=== PATIENT | female | born 1940 | race Caucasian/White ===

== ENCOUNTER → 2018-01-14 | Outpatient (CLI) | payer BC | LOC: C.LABOAKS 18:06 | PROVIDERS: ATTEND Internal Medicine Critical Care Medicine | DX: R19.7 Diarrhea, unspecified (principal) ==

== ENCOUNTER → 2018-01-21 | Outpatient (CLI) | payer BC ==
[2018-01-21 13:01] LABS: BASO % 0.2 %; BASO ABS # 0.01 K/uL (0-0.2); EOS ABS # 0.09 K/uL (0-0.5); HEMATOCRIT 36.9 % (37-47); HEMOGLOBIN 12.2 g/dL (12.0-16.0); IG# 0.03 K/uL (0.00-0.02); LYMPH % 30.9 %; MEAN CELL VOLUME 83.5 fL (80-100); MEAN CORPUSCULAR HEMOGLOBIN 27.6 pg (25-34); MEAN CORPUSCULAR HGB CONC 33.1 g/dl (32-36); MEAN PLATELET VOLUME 10.7 fL (7.4-10.4); MONO ABS # 0.27 K/uL (0.11-0.59); NEUT % 60.2 %; NEUT ABS # 2.73 K/uL (1.4-6.5); PLATELET COUNT 204 K/uL (130-400); RED CELL DISTRIBUTION WIDTH CV 14.9 % (11.5-14.5); RED CELL DISTRIBUTION WIDTH SD 45.6 fL (36.4-46.3); WHITE BLOOD COUNT 4.53 K/uL (4.8-10.8)
[2018-01-21 14:11] LABS: ALBUMIN 3.2 gm/dl (3.4-5.0); ALT/SGPT 20 U/L (12-78); AST/SGOT 17 U/L (15-37); BLOOD UREA NITROGEN 18 mg/dl (7-18); CALCIUM 8.7 mg/dl (8.5-10.1); CARBON DIOXIDE 23 mmol/L (21-32); CREATININE 0.72 mg/dl (0.60-1.20); GLUCOSE 104 mg/dl (70-99); POTASSIUM 3.5 mmol/L (3.5-5.1); SODIUM 143 mmol/L (136-145)
[2018-01-21 14:22] LABS: ALKALINE PHOSPHATASE 89 U/L (45-117); TOTAL PROTEIN 6.7 gm/dl (6.4-8.2)
[2018-01-23 08:34] LABS: METHYLMALONIC ACID 311 NMOL/L (87-318)
== END | disposition home or self-care (01) ==
LOC: C.LABOAKS 11:58
PROVIDERS: ATTEND Internal Medicine Critical Care Medicine
DX: D64.9 Anemia, unspecified (principal); E03.9 Hypothyroidism, unspecified; G93.40 Encephalopathy, unspecified

== ENCOUNTER 2018-06-01 16:11 | Emergency (ER) | payer BC ==
[~2018-06-01] VITALS: Ht 157.5 cm; Wt 53.8 kg
[2018-06-01 16:15] VITALS: TEMP 36.7; Ht 157.5 cm; Wt 53.8 kg
[2018-06-01] MEDS ORDERED: ATEN50TA8 PO (16:56)
[2018-06-01] MEDS ORDERED: POLY335019 PO (16:56)
[2018-06-01] MEDS ORDERED: CALMOSEPTINE TOP (16:56)
[2018-06-01] MEDS ORDERED: CAL1CHW4 PO (16:56)
[2018-06-01] MEDS ORDERED: PANT40TA PO (16:56)
[2018-06-01] MEDS ORDERED: PSYL48.59 PO (16:56)
[2018-06-01] MEDS ORDERED: CZR25 PO (16:56)
[2018-06-01] MEDS ORDERED: ACET-1256 PO (16:56)
[2018-06-01] MEDS ORDERED: GLC5 PO (16:56)
[2018-06-01] MEDS ORDERED: RIVA1.5C6 PO (16:56)
[2018-06-01] MEDS ORDERED: APIX1TAB PO (16:56)
--- NOTE | 2018-06-01 17:12 | DIAGNOSTIC IMAGING REPORT ---
HEAD WITHOUT CONTRAST (CT) CLINICAL HISTORY: 78 years-old Female with fall, hit head. Acute head injury status post fall TECHNIQUE: Multiple axial CT images of the head were obtained without contrast. A dose lowering technique was utilized adhering to the principles of ALARA. CT DOSE: 601.98 mGy.cm COMPARISON: None. FINDINGS: No acute intracranial hemorrhage, midline shift, intracranial mass, hydrocephalus, territorial ischemia or abnormal extra-axial collection. Mild degree of ill-defined low-attenuation about the white matter suggest chronic microvascular ischemic changes. Cerebral vascular calcifications are noted. The calvarium is intact. Right mastoid air cells are clear. Moderate left mastoid effusion. Paranasal sinuses appear clear. IMPRESSION: 1. No acute intracranial abnormality. 2. Moderate sized left mastoid effusion. The above report was generated using voice recognition software. It may contain grammatical, syntax or spelling errors. Electronically signed by: Nathan Pulliam M.D. 06/01/2018 5:11 PM Dictated Date/Time: 06/01/2018 5:09 PM
--- NOTE | 2018-06-01 17:37 | DIAGNOSTIC IMAGING REPORT ---
NASAL BONES MIN 3 VIEWS HISTORY: 78 years-old Female nasal pain acute nasal pain status post fall COMPARISON: CT head of same day TECHNIQUE: 3 views of the nasal bones FINDINGS: Ill-defined transversely oriented lucency about the right nasal bone. No acute left nasal bone fracture or displaced fracture identified. Mild soft tissue swelling of the nasal bridge. Paranasal sinuses appear clear. Left mastoid effusion. IMPRESSION: 1. Ill-defined lucency of the right nasal bone is equivocal for subtle acute nondisplaced fracture. Correlate with point tenderness. 2. Left mastoid effusion. The above report was generated using voice recognition software. It may contain grammatical, syntax or spelling errors. Electronically signed by: Nathan Pulliam M.D. 06/01/2018 5:36 PM Dictated Date/Time: 06/01/2018 5:33 PM
--- NOTE | 2018-06-01 18:42 | DIAGNOSTIC IMAGING REPORT ---
L SHOULDER MIN 2 VIEWS ROUTINE HISTORY: 78 years-old Female left shoulder pain acute left-sided shoulder pain COMPARISON: None available TECHNIQUE: 3 views of the left shoulder FINDINGS: Moderate to severe glenohumeral with at least moderate AC joint osteoarthritis. Decreased coracohumeral interval with articulation of the acromium and humeral head. Mild marginal spurring of the acromium and greater tuberosity. No acute fracture or dislocation. Suspected chronic appearing fracture of the posterior left second rib. Calcification of the aorta. IMPRESSION: 1. No acute fracture or dislocation. 2. 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 The above report was generated using voice recognition software. It may contain grammatical, syntax or spelling errors. Electronically signed by: Nathan Pulliam M.D. 06/01/2018 6:41 PM Dictated Date/Time: 06/01/2018 6:39 PM
--- NOTE | 2018-06-01 18:44 | DIAGNOSTIC IMAGING REPORT ---
L ANKLE MIN 3 VIEWS ROUTINE HISTORY: 78 years-old Female left ankle pain acute left ankle pain COMPARISON: None available TECHNIQUE: 3 views of the left ankle FINDINGS: Mild circumferential soft tissue swelling about the ankle. The bones appear mildly demineralized. Mild marginal spurring of the ankle without acute fracture, dislocation or osteochondral defect. Corticated bone fragment is noted on the dorsal margin of the anterior process talus suggesting remote fracture fragment or fragmented osteophyte. Large enthesophytes about the calcaneus. Extensive peripheral arterial calcifications noted. IMPRESSION: Soft tissue swelling without fracture. The above report was generated using voice recognition software. It may contain grammatical, syntax or spelling errors. Electronically signed by: Nathan Pulliam M.D. 06/01/2018 6:42 PM Dictated Date/Time: 06/01/2018 6:41 PM
[2018-06-01 19:56] VITALS: BP 170/84; PULSE 63; O2SAT 94
--- NOTE | 2018-06-02 18:28 | EMERGENCY ROOM VISIT NOTE ---
History First contact with patient: 16:20 Chief Complaint: FALL Stated Complaint: FALL, HIT NOSE, SORE ANKLE History of Present Illness The patient is a 78 year old white female who presents to the Emergency Room with complaints of nasal pain, left ankle pain, and left upper arm pain, after a mechanical fall at the [place]. Patient states she tripped on a carpet and fell forward, landing on her face. She also landed on her left side. She believes the left ankle was hyper dorsiflexed. She has been ambulatory. She denies any loss of consciousness. 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 She denies any numbness or tingling. No chest pain or shortness of breath. No abdominal pain. She denies any dizziness before the fall. Her son and daughter -in-law accompany her today. She has had no vomiting. She denies any current headache. She has a large abrasion on her nose. Bleeding is controlled. Review of Systems REVIEW OF SYSTEM: HEENT: No dizziness, visual problems, hearing loss, or tinnitus. There is no difficulty swallowing and no oral lesions are present. PULMONARY: No cough, shortness of breath, sputum production or hemoptysis. History of PEs CARDIOVASCULAR: No chest pain, palpitations, shortness of breath or peripheral edema. GASTROINTESTINAL: No diarrhea, constipation, nausea, vomiting, or abdominal pain. GENITOURINARY: No dysuria, frequency, urgency or nocturia. NEUROLOGIC: No weakness, muscle tenderness, epilepsy or history of neurological problems. MUSCULOSKELETAL: No history of joint tenderness/swelling. Positive history of arthritis and arthralgias. SKIN: No rashes or lesions. PSYCHIATRIC: No history of depression or mental illness. ENDOCRINE: No history of thyroid disorders, or abnormal hair growth. Positive history of diabetes Past Medical/Surgical History Previous surgeries: None Medical history: Significant for history of DVT and PE, hypertension, type 2 diabetes, history of mastoiditis with encephalitis Family History Parents are . Noncontributory. Social History Smoking Status: Never Smoker Smokeless Tobacco Use: No Alcohol Use: none Drug Use: none Marital Status: Housing Status: assisted living Occupation Status: retired Current/Historical Medications Scheduled Apixaban (Eliquis), 2.5 MG PO BID Atenolol (Tenormin), 50 MG PO DAILY Glipizide (Glipizide), 5 MG PO DAILY Losartan Potassium (Losartan Potassium), 25 MG PO DAILY Pantoprazole (Protonix), 40 MG PO DAILY Rivastigmine Tartrate (Exelon), 1.5 MG PO BID Scheduled PRN Acetaminophen (Tylenol), 500 MG PO Q4 PRN for PAIN/TEMP [facility] Hydrox-Simeth (Rolaids Advanced 1000-200-40 mg), 1 TAB PO Q4 PRN for GERD Polyethylene Glycol 3350 (Miralax), 17 GM PO DAILY PRN for Constipation Psyllium (Metamucil), 1 TBS PO DAILY PRN for Constipation [Calmoseptine], 1 APPLN TOP BID PRN for IRRITATION Physical Exam Vital Signs Date Time Temp Pulse Resp B/P (MAP) Pulse Ox O2 Delivery O2 Flow Rate FiO2 06/01/18 19:56 63 170/84 94 Room Air 06/01/18 18:30 58 178/74 100 Room Air 06/01/18 16:15 36.7 60 16 201/92 98 Room Air Physical Exam General: Frail, elderly white female, in no acute distress. Sitting on the bed. Alert and oriented. Skin: Warm and dry with good turgor. No rashes. She has ecchymosis present over the lateral aspect of her left upper arm. It is approximately the size of a tangerine. She has ecchymosis and edema present at her nasal bridge. There is also a fairly large excoriation that is 1 cm in diameter. Bleeding is controlled. The patient is not diaphoretic. No additional abrasions. HEENT: Normocephalic. Eyes PERRLA, EOMI. No conjunctiva or scleral injection. Ears TMs intact bilaterally with good light reflexes. No erythema or bulging. No hemotympanum. Canals are patent. Nares patent bilaterally without turbinate enlargement. No significant drainage. No epistaxis. Oropharynx without erythema or exudate. Uvula midline, oral mucosa moist. No lesions present. Heart: Heart RRR. No MGR. Peripheral pulses are 2+. Lungs: Lungs are clear to auscultation. No crackles rhonchi or wheezing. Good air movement. The patient is able to take a deep breath. Abdomen: Abdomen was inspected, auscultated, and palpated. Bowel sounds present x 4. Soft, nontender to palpation. No hepato-splenomegaly. No masses noted. No rebound. No CVA tenderness. Musculoskeletal: She has no discomfort with palpation over her cervical spine or thoracic spine. Full range of motion of her neck. Limited range of motion of her left shoulder. Abduction of 80, forward flexion of 80, external rotation of around 20 with her elbow at the side. There is crepitus palpable with motion of her shoulder. She describes discomfort with palpation over the proximal humerus. Full elbow and wrist range of motion in both arms. Supple motion of both hips, knees, and the right ankle. Good motion of the left ankle as well, though this does cause some discomfort over the dorsum of the foot and anterior ankle. No pain with palpation over the medial or lateral malleoli. Strength is 5/5 for resisted plantarflexion and dorsiflexion of the left ankle. Neurologic: Gross sensation is intact across the upper and lower extremities by soft touch. Cranial nerves II through XII are intact. Medical Decision & Procedures ER Provider Diagnostic Interpretation: CT scan imaging of her head was read by radiology is negative for fracture or intracranial bleed. Radiographic imaging obtained of her nasal bones, left shoulder, and left ankle were also read by radiology and reviewed by me. She appears to have a nondisplaced nasal bone fracture. Left shoulder has significant arthritic change but no fracture. Left ankle films are unremarkable. Minor edema but no fracture. ED Course Patient and her family were educated regarding today's findings. Conservative care measures were discussed. CT scan imaging and radiographic imaging were obtained. She appears to have a nondisplaced nasal fracture. This should heal on its own. Avoid further trauma to the face. She has known DJD of the left shoulder along with rotator cuff pathology. She has no acute fracture. She may ice and elevate intermittently as needed for any minor discomfort. Tylenol every 6 hours as needed for breakthrough pain. She may benefit from some limited physical therapy. She may speak with her PCP about this. In regard to her left ankle, she was placed in a gel ankle splint for protection and support. She will use this as needed. Weight-bear as tolerated using her walker or cane. She was reassured that I do not suspect intracranial bleed or fracture, despite her anticoagulation use. Return to the ED for any worsening of symptoms. Cleanse her nasal abrasion daily with soap and water and reapply a small amount of bacitracin until fully resolved. First application was done today in the ED. There is nothing to suture. There is no flap to cover. Ice to any sore areas intermittently as needed 3 days, then use moist heat. She may be more sore tomorrow than today. Patient was seen in conjunction with Dr. Rossi, who also evaluated the patient and concurred with today's diagnosis and treatment plan. Medical Decision Possibility of intracranial bleed, cervical spine injury, facial fracture, skull fracture, arm fracture, and ankle fracture were considered among others. Possibility of dizziness or cardiac event prior to her fall was also considered. Medication Reconcilliation Current Medication List: was personally reviewed by me Blood Pressure Screening Blood pressure disposition: Elevated BP felt to be situational Impression Primary Impression: Nasal fracture Additional Impressions: Fall at home ankle sprain, left left arm contusion Departure Information Dispostion Home / Self-Care Condition GOOD Forms HOME CARE DOCUMENTATION FORM, Clean wound with;: soap and water Number of times/day to clean wound: 2 Coat wound with: antibiotic ointment TYLENOL USE, WOUND CARE INSTRUCTIONS, IMPORTANT VISIT INFORMATION Patient Instructions [facility] Additional Instructions Apply ice to any sore areas intermittently to 3 days, then use moist heat Gentle motion daily Cleanse the nose daily apply triple antibiotic ointment to the nasal abrasion 2 times per day Use the ankle splint for support and stability as needed Use your walker when ambulating Follow-up with your PCP for reevaluation if symptoms persist Return to the ED for any acute worsening of symptoms Tylenol every 6 hours as needed for discomfort Problem Qualifiers Primary Impression: Nasal fracture Encounter type: initial encounter Fracture type: closed Qualified Codes: S02.2XXA - Fracture of nasal bones, initial encounter for closed fracture Additional Impressions: Fall at home Encounter type: initial encounter Qualified Codes: W19.XXXA - Unspecified fall, initial encounter; Y92.009 - Unspecified place in unspecified non- institutional (private) residence as the place of occurrence of the external cause
--- NOTE | 2018-06-02 22:00 | EMERGENCY ROOM VISIT NOTE ---
ED Visit Note First contact with patient: 16:20 I have personally evaluated this patient examined her and reviewed the pertinent labs and data. I have discussed the case with the physician senior sales assistant and agree with the plan. Please refer to the PA note This patient comes in after suffering a mechanical fall. She did hit her head and face. CAT scan of her head shows no acute traumatic findings .she does likely have a nasal fracture is nondisplaced and she has no septal hematoma on my exam she is an abrasion to her nose. We also did get x-rays of left shoulder and ankle. She feels good and would like to go home. She denies that she had a syncopal episode or chest pain. She should rest and be careful getting up and down follow-up with her regular doctor.
== END 2018-06-01 19:58 | disposition home or self-care (01) ==
LOC: C.EDB 16:12 → C.EDC 19:58
DX: S02.2XXA Fracture of nasal bones, initial encounter for closed fracture (principal); S93.402A Sprain of unspecified ligament of left ankle, initial encounter; S40.022A Contusion of left upper arm, initial encounter; W18.09XA Striking against other object with subsequent fall, initial encounter; Y92.009 Unspecified place in unspecified non-institutional (private) residence as the place of occurrence of the external cause; I10 Essential (primary) hypertension; E11.9 Type 2 diabetes mellitus without complications; Z86.711 Personal history of pulmonary embolism; Z86.718 Personal history of other venous thrombosis and embolism; Z79.01 Long term (current) use of anticoagulants; Z79.84 Long term (current) use of oral hypoglycemic drugs; Z79.899 Other long term (current) drug therapy

== ENCOUNTER 2020-07-12 12:24 | Observation (INO) ==
[2020-07-12] MEDS ORDERED: SODIUM CHLORIDE 0.9% 1000ML 1,000 ML IV SCH (12:45)
--- NOTE | 2020-07-12 13:04 | XRay Report ---
XR chest 1V portable CLINICAL HISTORY: Weakness COMPARISON STUDY: 11/04/2018 FINDINGS: There is stable borderline elevation right hemidiaphragm. There is no failure. There is no focal pulmonary consolidation. There are no pleural effusions. There is a calcified right upper lung zone granuloma.[ IMPRESSION: No active disease in the chest. ACT 112: Negative or not required by law. Electronically signed by: Kanu Lennon M.D. 07/12/2020 1:02 PM
[2020-07-12 13:18] LABS: Basophils # (auto) 0.01 K/uL (0-0.2); Basophils % (auto) 0.1 %; Eosinophils # (auto) 0.23 K/uL (0-0.5); Eosinophils % (auto) 3.2 %; Hematocrit (blood only) 35.9 % (37-47); Hemoglobin 12.2 g/dL (12.0-16.0); Immature Granulocytes # (auto) 0.01 K/uL (0.00-0.02); Immature Granulocytes % (auto) 0.1 %; Lymphocytes # (auto) 1.25 K/uL (1.2-3.4); Lymphocytes % (auto) 17.3 %; Mean Corpuscular Hemoglobin 28.2 pg (25-34); Mean Corpuscular Volume 82.9 fL (80-100); Mean Platelet Volume 10.5 fL (7.4-10.4); Monocytes % (auto) 6.9 %; Neutrophils # (auto) 5.24 K/uL (1.4-6.5); Neutrophils % (auto) 72.4 %; Platelet Count 218 K/uL (130-400); RDW Coefficient of Variation 13.5 % (11.5-14.5); RDW Standard Deviation 41.1 fL (36.4-46.3); Red Blood Count 4.33 M/uL (4.2-5.4); White Blood Count 7.24 K/uL (4.8-10.8)
--- NOTE | 2020-07-12 13:20 | Emergency Department Note ---
Impression & Plan Altered mental status, Urinary tract infection, Acute kidney injury, Acute dehydration ED Provider Note NAME: LUCIA MARINO AGE: 80 SEX: F : 1940 ARRIVES VIA: Ambulance INFORMANT: Patient, the prehospital personnel and the patient's family member ED PROVIDER(S): Jarod Dozier DO CHIEF COMPLAINT: Altered mental status HPI: The patient is an 80-year-old female who presented to the emergency department for altered mental status. The patient has a last known well time of last evening prior to bed according to the prehospital personnel. The patient herself offers no complaints however reports from the long term state that the patient was having a left-sided facial droop as well as altered mental status. She has a history of urinary tract infection and is currently being treated with an antibiotic. There is been no nausea or vomiting. She is been complaining of no chest pain or difficulty breathing. She offers no other complaints at this time. The patient has a history of frequent falls. She also takes anticoagulation for atrial fibrillation. ROS: See above HPI for pertinent positives & negatives. A total of 10 systems reviewed and were otherwise negative. PAST MEDICAL HISTORY: See Below PAST SURGICAL HISTORY: See Below FAMILY HISTORY: See Below SOCIAL HISTORY: See Below HOME MEDICATIONS: See Below ALLERGIES: See Below VITALS: See Below PHYSICAL EXAMINATION: GENERAL: The patient is frail-appearing. She does not appear to be in pain. She follows directions intermittently but not consistently. EYES: The conjunctivae are clear. The pupils are round and reactive. EARS, NOSE, MOUTH AND THROAT: The nose is without any evidence of any deformity. Mucous members are dry. NECK: The neck is nontender and supple. RESPIRATORY: Normal respiratory effort is noted there is no evidence of wheezing rhonchi or rales CARDIOVASCULAR: Irregular rhythm was noted to auscultation. There is no definite murmur. GASTROINTESTINAL: The abdomen is soft. Abdomen is nontender. MUSCULOSKELETAL/EXTREMITIES: There is no evidence of gross deformity full range of motion is noted in the hips and shoulders. SKIN: There is no obvious evidence of any rash. There is no significant pedal edema. NEUROLOGIC: Patient is the patient is awake and follows commands. She does not answer questions appropriately so orientation cannot be assessed at this time. Strength was symmetric but diminished bilaterally. There was a possible left facial droop noted with forehead sparing. MEDICAL DECISION MAKING: The patient is an 80-year-old female who presented to the emergency department by ambulance for an evaluation of altered mental status. History was not able to be obtained from the patient herself however her son did present to the emerg ency department. The patient has been experiencing worsening dementia and agitation at the long term. Initially this was thought to be due to a urinary tract infection. The patient was started on Bactrim last week. Her symptoms did improve however today she started worsening with her symptoms and at this time her son states that she is not at her normal mental status. The patient had a work-up which included CT the head and CT angiography. No large vessel occlusion was noted. I discussed the patient's laboratory and radiographic studies with her and her son. I also discussed her case with the on-call [facility] group. They have agreed to evaluate the patient in the emergency department for further management and disposition. The patient was treated with IV fluids and IV antibiotics. Triage Nursing notes reviewed. Prior medical records reviewed Vital Signs: reviewed and remarkable for elevated blood pressure. Differential diagnosis: Infection, dehydration, metabolic abnormality, hypo/hyperglycemia, electrolyte disturbance, anemia, hypoxia, cardiac sources, intracerebral event, toxicologic, neurologic, as well as other pathologies. ER treatment provided: See below Diagnostics interpreted by me: ECG: EKG was obtained in the emergency department. My interpretation is atrial fibrillation at 108 bpm. There was no ectopy. There was no acute ST segment abnormalities noted. This was compared to a tracing from November 042018. No significant changes were noted. Cardiac Monitoring: An order was placed for continuous cardiac monitoring. The monitor shows a rate of 82 bpm with atrial fibrillation rhythm. Laboratory studies: As stated above and show below. Imaging studies: See below Consultation(s): 1600: I discussed this case with Dom Guillermo who is on-call for the [facility] group. She will evaluate the patient in the emergency department. 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 Diabetes mellitus, type II Endometriosis HTN (hypertension) Pulmonary emboli Surgical History History of cholecystectomy Family History Other No significant family history Social History Smoking Status: Never smoker Preferred Language: Burundian Feels Safe at Home: Yes Allergies Allergies Allergy/AdvReac Type Severity Reaction Status Date / Time atorvastatin [From Lipitor] Allergy Unknown Unknown Verified 07/12/20 13:21 metformin [From Glucophage] Allergy Unknown Unknown Verified 07/12/20 13:21 Penicillins Allergy Unknown Unknown Verified 07/12/20 13:21 Home Meds Home Medications Medication Instructions Recorded Confirmed amlodipine [Norvasc] 5 mg PO DAILY@89911/04/18 07/12/20 apixaban 2.5 mg PO BID 11/04/18 07/12/20 atenolol 50 mg PO DAILY@89911/04/18 07/12/20 ergocalciferol (vitamin D2) 50,000 unit PO FR@89911/04/18 07/12/20 [Vitamin D2] glipizide 5 mg PO DAILY@0911/04/18 07/12/20 losartan [Cozaar] 100 mg PO DAILY@0911/04/18 07/12/20 polyethylene glycol 3350 [Miralax] 17 g PO DAILY PRN 11/04/18 07/12/20 lorazepam 1 mg PO Q4H PRN 04/22/20 07/12/20 omeprazole 20 mg PO DAILY@0904/22/20 07/12/20 sulfamethoxazole-trimethoprim 1 tab PO BID17 04/22/20 07/12/20 [Bactrim DS] quetiapine 200 mg PO DAILY@1700 07/12/20 07/12/20 Results & Data (ED) Vital Signs Vital Signs - 24 hr 07/12/20 12:30 07/12/20 12:31 07/12/20 12:43 Temperature 36.6 C Temperature Source Oral Pulse Rate 67 64 62 Pulse Rate [Apical] Pulse Rate from SpO2 Sensor Respiratory Rate 16 17 14 Blood Pressure 120/53 L 120/53 L Blood Pressure [Left Arm] Blood Pressure Mean 75 84 Blood Pressure Mean [Left Arm] Pulse Oximetry 92 Oxygen Delivery Method Room Air Sepsis Recent Fever Within 48 Hours No Sepsis New/Unexplained Change in Mental Status N/A Sepsis Action Taken by Nursing No Action Required 07/12/20 12:50 07/12/20 13:00 07/12/20 13:10 Temperature Temperature Source Pulse Rate 62 61 64 Pulse Rate [Apical] Pulse Rate from SpO2 Sensor 61 Respiratory Rate 15 18 14 Blood Pressure Blood Pressure [Left Arm] Blood Pressure Mean Blood Pressure Mean [Left Arm] Pulse Oximetry 99 Oxygen Delivery Method Sepsis Recent Fever Within 48 Hours Sepsis New/Unexplained Change in Mental Status Sepsis Action Taken by Nursing 07/12/20 13:20 07/12/20 13:30 07/12/20 13:33 Temperature Temperature Source Pulse Rate 69 61 65 Pulse Rate [Apical] Pulse Rate from SpO2 Sensor Respiratory Rate 14 18 15 Blood Pressure Blood Pressure [Left Arm] Blood Pressure Mean Blood Pressure Mean [Left Arm] Pulse Oximetry Oxygen Delivery Method Sepsis Recent Fever Within 48 Hours Sepsis New/Unexplained Change in Mental Status Sepsis Action Taken by Nursing 07/12/20 13:35 07/12/20 13:40 07/12/20 14:02 Temperature Temperature Source Pulse Rate 63 70 Pulse Rate [Apical] 67 Pulse Rate from SpO2 Sensor 74 Respiratory Rate 20 17 14 Blood Pressure Blood Pressure [Left Arm] 98/46 L Blood Pressure Mean Blood Pressure Mean [Left Arm] 63 Pulse Oximetry 91 92 Oxygen Delivery Method Room Air Sepsis Recent Fever Within 48 Hours Sepsis New/Unexplained Change in Mental Status Sepsis Action Taken by Nursing 07/12/20 14:10 07/12/20 14:20 07/12/20 14:23 Temperature Temperature Source Pulse Rate 76 71 Pulse Rate [Apical] 71 Pulse Rate from SpO2 Sensor 73 Respiratory Rate 14 15 18 Blood Pressure Blood Pressure [Left Arm] Blood Pressure Mean Blood Pressure Mean [Left Arm] Pulse Oximetry 96 Oxygen Delivery Method Sepsis Recent Fever Within 48 Hours Sepsis New/Unexplained Change in Mental Status Sepsis Action Taken by Nursing 07/12/20 14:30 07/12/20 14:31 07/12/20 14:40 Temperature Temperature Source Pulse Rate 70 75 69 Pulse Rate [Apical] Pulse Rate from SpO2 Sensor Respiratory Rate 19 13 17 Blood Pressure 119/66 Blood Pressure [Left Arm] Blood Pressure Mean 79 Blood Pressure Mean [Left Arm] Pulse Oximetry Oxygen Delivery Method Sepsis Recent Fever Within 48 Hours Sepsis New/Unexplained Change in Mental Status Sepsis Action Taken by Nursing 07/12/20 14:50 07/12/20 15:00 07/12/20 15:01 Temperature Temperature Source Pulse Rate 75 72 71 Pulse Rate [Apical] Pulse Rate from SpO2 Sensor Respiratory Rate 17 16 19 Blood Pressure 115/80 Blood Pressure [Left Arm] Blood Pressure Mean 86 Blood Pressure Mean [Left Arm] Pulse Oximetry Oxygen Delivery Method Sepsis Recent Fever Within 48 Hours Sepsis New/Unexplained Change in Mental Status Sepsis Action Taken by Nursing 07/12/20 15:10 07/12/20 15:20 07/12/20 15:30 Temperature Temperature Source Pulse Rate 79 75 71 Pulse Rate [Apical] Pulse Rate from SpO2 Sensor Respiratory Rate 16 16 14 Blood Pressure Blood Pressure [Left Arm] Blood Pressure Mean Blood Pressure Mean [Left Arm] Pulse Oximetry Oxygen Delivery Method Sepsis Recent Fever Within 48 Hours Sepsis New/Unexplained Change in Mental Status Sepsis Action Taken by Nursing 07/12/20 15:31 07/12/20 15:40 07/12/20 15:50 Temperature Temperature Source Pulse Rate 71 71 71 Pulse Rate [Apical] Pulse Rate from SpO2 Sensor Respiratory Rate 16 21 15 Blood Pressure 125/66 Blood Pressure [Left Arm] Blood Pressure Mean 76 Blood Pressure Mean [Left Arm] Pulse Oximetry Oxygen Delivery Method Sepsis Recent Fever Within 48 Hours Sepsis New/Unexplained Change in Mental Status Sepsis Action Taken by Nursing 07/12/20 16:00 07/12/20 16:10 07/12/20 16:20 Temperature Temperature Source Pulse Rate 72 71 76 Pulse Rate [Apical] Pulse Rate from SpO2 Sensor Respiratory Rate 15 18 16 Blood Pressure 119/87 Blood Pressure [Left Arm] Blood Pressure Mean 103 Blood Pressure Mean [Left Arm] Pulse Oximetry 93 Oxygen Delivery Method Room Air Sepsis Recent Fever Within 48 Hours Sepsis New/Unexplained Change in Mental Status Sepsis Action Taken by Retirement Medications Current Medication List: was personally reviewed by me Laboratory Data Attestation: I reviewed the patient's lab results. Result diagrams: 07/12/20 13:00 07/12/20 13:00 Lab Results 07/12/20 07/12/20 07/12/20 Range/Units 13:00 13:00 13:00 WBC 7.24 (4.8-10.8) K/uL RBC 4.33 (4.2-5.4) M/uL Hgb 12.2 (12.0-16.0) g/dL POC Hgb (12.0-16.0) g/dl Hct 35.9 L (37-47) % POC Hct (37-47) % MCV 82.9 (80-100) fL MCH 28.2 (25-34) pg MCHC 34.0 (32-36) g/dL RDW Std Deviation 41.1 (36.4-46.3) fL RDW Coeff of Dwight 13.5 (11.5-14.5) % Plt Count 218 (130-400) K/uL MPV 10.5 H (7.4-10.4) fL Immature Gran % (Auto) 0.1 % Neut % (Auto) 72.4 % Lymph % (Auto) 17.3 % [place] % (Auto) 6.9 % Eos % (Auto) 3.2 % Baso % (Auto) 0.1 % Neut # (Auto) 5.24 (1.4-6.5) K/uL Lymph # (Auto) 1.25 (1.2-3.4) K/uL [place] # (Auto) 0.50 (0.11-0.59) K/uL Eos # (Auto) 0.23 (0-0.5) K/uL Baso # (Auto) 0.01 (0-0.2) K/uL Immature Gran # (Auto) 0.01 (0.00-0.02) K/uL PT 11.5 (9.0-12.0) Seconds INR 1.1 (0.9-1.1) APTT 31.7 H (21.0-31.0) Seconds PTT Ratio 1.1 POC Sodium (135-144) mmol/L Sodium 142 (136-145) mmol/L POC Potassium (3.3-5.0) mmol/L Potassium 4.5 (3.5-5.1) mmol/L POC Chloride (101-112) mmol/L Chloride 108 H (98-107) mmol/L Carbon Dioxide 29 (21-32) mmol/L POC Total CO2 (24-31) mmol/L Anion Gap 5.0 (3-11) POC Anion Gap (16-25) mmol/L POC BUN (7-18) mg/dl BUN 18 (7-18) mg/dl Creatinine 1.32 H (0.6-1.2) mg/dl POC Creatinine (0.6-1.3) mg/dl Est Cr Clr Drug Dosing 24.8 ml/min Est GFR ( Amer) 43.7 Est GFR (Non-Af Amer) 37.7 BUN/Creatinine Ratio 13.6 (10-20) Glucose 121 H (70-99) mg/dl POC Glucose (other) (70-99) mg/dl Calcium 9.0 (8.5-10.1) mg/dl POC Ioniz Calcium Adolfo (1.12-1.32) mmol/l Magnesium 1.9 (1.8-2.4) mg/dl Total Bilirubin 0.5 (0.2-1) mg/dl AST 31 (15-37) U/L ALT 27 (12-78) U/L Alkaline Phosphatase 106 (45-117) U/L Troponin I < 0.015 (0-0.045) ng/ml Total Protein 7.5 (6.4-8.2) gm/dl Albumin 3.2 L (3.4-5.0) gm/dl Globulin 4.3 H (2.5-4.0) gm/dl Albumin/Globulin Ratio 0.7 L (0.9-2) Urine Color Urine Appearance (Clear) Urine pH (4.5-7.5) Ur Specific Traver (1.000-1.030) Urine Protein (Negative) Urine Glucose (UA) (Negative) Urine Ketones (Negative) Urine Blood (Negative) Urine Nitrite (Negative) Urine Bilirubin (Negative) Urine Urobilinogen (Negative) Ur Leukocyte Esterase (Negative) Urine WBC (Auto) (0-5) /hpf Urine RBC (Auto) (0-4) /hpf U Hyaline Cast (Auto) (0-5) /lpf U Epithel Cells (Auto) (0-5) /lpf Urine Bacteria (Auto) (Negative) Ur Renal Epithelial Cell (0-5) /lpf Uric Acid Crystals (None Prsent) Granular Casts (0) /lpf Urine Mucus (None Prsent) COVID-19 Eval Order 07/12/20 07/12/20 07/12/20 Range/Units 13:09 13:25 16:18 WBC (4.8-10.8) K/uL RBC (4.2-5.4) M/uL Hgb (12.0-16.0) g/dL POC Hgb 12.6 (12.0-16.0) g/dl Hct (37-47) % POC Hct 37 (37-47) % MCV (80-100) fL MCH (25-34) pg MCHC (32-36) g/dL RDW Std Deviation (36.4-46.3) fL RDW Coeff of Dwight (11.5-14.5) % Plt Count (130-400) K/uL MPV (7.4-10.4) fL Immature Gran % (Auto) % Neut % (Auto) % Lymph % (Auto) % [place] % (Auto) % Eos % (Auto) % Baso % (Auto) % Neut # (Auto) (1.4-6.5) K/uL Lymph # (Auto) (1.2-3.4) K/uL [place] # (Auto) (0.11-0.59) K/uL Eos # (Auto) (0-0.5) K/uL Baso # (Auto) (0-0.2) K/uL Immature Gran # (Auto) (0.00-0.02) K/uL PT (9.0-12.0) Seconds INR (0.9-1.1) APTT (21.0-31.0) Seconds PTT Ratio POC Sodium 142 (135-144) mmol/L Sodium (136-145) mmol/L POC Potassium 4.5 (3.3-5.0) mmol/L Potassium (3.5-5.1) mmol/L POC Chloride 104 (101-112) mmol/L Chloride (98-107) mmol/L Carbon Dioxide (21-32) mmol/L POC Total CO2 27 (24-31) mmol/L Anion Gap (3-11) POC Anion Gap 17.0 (16-25) mmol/L POC BUN 18 (7-18) mg/dl BUN (7-18) mg/dl Creatinine (0.6-1.2) mg/dl POC Creatinine 1.2 (0.6-1.3) mg/dl Est Cr Clr Drug Dosing ml/min Est GFR ( Amer) Est GFR (Non-Af Amer) BUN/Creatinine Ratio (10-20) Glucose (70-99) mg/dl POC Glucose (other) 128 H (70-99) mg/dl Calcium (8.5-10.1) mg/dl POC Ioniz Calcium Adolfo 1.23 (1.12-1.32) mmol/l Magnesium (1.8-2.4) mg/dl Total Bilirubin (0.2-1) mg/dl AST (15-37) U/L ALT (12-78) U/L Alkaline Phosphatase (45-117) U/L Troponin I (0-0.045) ng/ml Total Protein (6.4-8.2) gm/dl Albumin (3.4-5.0) gm/dl Globulin (2.5-4.0) gm/dl Albumin/Globulin Ratio (0.9-2) Urine Color Yellow Urine Appearance Clear (Clear) Urine pH 5.0 (4.5-7.5) Ur Specific [place] 1.021 (1.000-1.030) Urine Protein Negative (Negative) Urine Glucose (UA) Negative (Negative) Urine Ketones Negative (Negative) Urine Blood Negative (Negative) Urine Nitrite Negative (Negative) Urine Bilirubin Negative (Negative) Urine Urobilinogen Negative (Negative) Ur Leukocyte Esterase 2+ H (Negative) Urine WBC (Auto) 5-10 H (0-5) /hpf Urine RBC (Auto) 0-4 (0-4) /hpf U Hyaline Cast (Auto) 10-30 H (0-5) /lpf U Epithel Cells (Auto) >30 H (0-5) /lpf Urine Bacteria (Auto) Negative (Negative) Ur Renal Epithelial Cell 0-5 (0-5) /lpf Uric Acid Crystals Present A (None Prsent) Granular Casts 1-5 H (0) /lpf Urine Mucus Present A (None Prsent) COVID-19 Eval Order [facility] Administered Medications Sodium Chloride (Nss 1000ml) 1,000 mls @ 50 mls/hr IV .Q20H HAIDER Stop: 08/11/20 12:44 Last Admin: 07/12/20 14:21 Dose: 50 mls/hr Documented by: [id number] Discontinued Medications Sodium Chloride (Nss) 500 mls @ 999 mls/hr IV .Q31M ONE Stop: 07/12/20 16:09 Last Infusion: 07/12/20 16:24 Dose: 0 mls/hr Documented by: [id number] Admin: 07/12/20 15:49 Dose: 999 mls/hr Documented by: [id number] Ceftriaxone Sodium (Rocephin) 1,000 mg in 50 mls @ 100 mls/hr IV NOW STA Stop: 07/12/20 16:08 Last Infusion: 07/12/20 16:24 Dose: 0 mls/hr Documented by: [id number] Admin: 07/12/20 15:49 Dose: 100 mls/hr Documented by: [id number] Ioversol (Optiray 320 125ml) 118 ml IV ONCE ONE Stop: 07/12/20 13:48 Last Admin: 07/12/20 13:48 Dose: 118 ml Documented by: [id number] Imaging Data Radiologist's Impression: Patient: LUCIA MARINO Date: 07/12/20 MR#: [id number]: [address] [facility] Acct ID:[id number]: ELM[place]FT Date: 1940[facility] Zip: [place] [address] Age: 80Location: ED Sex: FRoom/Bed: Att Phy:Diagnosis: lethargic/ams, elmcroft Luz Phy: ElmcroftService Date: 07/12/20 Fam Phy:Interpreting Phy: Kanu Lennon MD Admit Phy: Ordering Phy: Jarod Dozier DO cc: ~ XR chest 1V portable CLINICAL HISTORY: Weakness COMPARISON STUDY: 11/04/2018 FINDINGS: There is stable borderline elevation right hemidiaphragm. There is no failure. There is no focal pulmonary consolidation. There are no pleural effusions. There is a calcified right upper lung zone granuloma.[ IMPRESSION: No active disease in the chest. ACT 112: Negative or not required by law. Electronically signed by: Kanu Lennon M.D. 07/12/2020 1:02 PM Dictated: 07/12/20 1253 Transcribed: 07/12/20 1253 Patient: LUCIA MARINO Date: 07/12/20 MR#: [id number]: [address] [facility] Acct ID:[id number]: [place] Date: 1940[facility] Zip: [place] [address] Age: 80Location: ED Sex: FRoom/Bed: Att Phy:Diagnosis: lethargic/ams, elmcroft Luz Phy: ElroftService Date: 07/12/20 [facility] Phy:Interpreting Phy: Aureliano Orellana MD Admit Phy: Ordering Phy: Jarod Dozier DO cc: ~ UNENHANCED CT OF THE BRAIN; CT ANGIOGRAM OF THE BRAIN; CT ANGIOGRAM OF THE NECK CLINICAL HISTORY: Strokelike symptoms. COMPARISON STUDY: CT of the brain dated 04/22/2020. TECHNIQUE: Unenhanced axial CT scan of the brain is performed. Subsequently, following the IV administration of 118 of Optiray 320, CT angiogram of the head and neck was performed from the aortic arch to the vertex. Images are reviewed in the axial, sagittal, and coronal planes. 3-D MIPS images are created and assessed. IV contrast was administered without complication. All measurements were calculated based on NASCET criteria. A dose lowering technique was utilized adhering to the principles of ALARA. The unenhanced CT of the brain was performed twice due to motion artifact. CT DOSE: 2595.83 mGy.cm FINDINGS: Brain parenchyma: There is age-related involutional change noting moderate subco rtical and periventricular microangiopathic disease. There is no hemorrhage, mass effect, or evidence of acute territorial ischemia by CT criteria. There is no evidence of enhancing mass lesion on the angiogram phase images. The ventricles, sulci, and cisterns are prominent secondary to involutional change. Gusman-white matter differentiation is preserved. No extra-axial fluid collection is seen. Thoracic aorta: There is atherosclerotic calcification of the thoracic aorta. Visualized portions of the thoracic aorta are normal in caliber. The aortic arch demonstrates standard 3-vessel anatomy. Right carotid arterial system: The right common carotid artery is widely patent, as are the right internal and external carotid arteries. Calcified plaque is noted in the carotid bulb. Left carotid arterial system: The left common carotid artery is widely patent, as are the left internal and external carotid arteries. Vertebral arteries: The vertebral arteries are widely patent and codominant. Subclavian arteries: Widely patent bilaterally. Intracranial vasculature: There is atherosclerotic calcification of the cavernous carotid and vertebral arteries. There is origin of the left post erior cerebral artery. The internal carotid arteries are patent at the skull base, as are the anterior and middle cerebral arteries bilaterally. The vertebrobasilar system is widely patent. 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 The posterior cerebral arteries are otherwise patent. The vertebral arteries are codominant. There is no aneurysm or focal vessel cut off seen throughout the intracranial circulation. Jugular veins: Patent bilaterally. Dural sinuses: Patent. Lung apices: A calcified granuloma is seen in the right upper lobe. The imaged upper lobe lung parenchyma is otherwise clear. Soft tissues: The visualized pharyngeal soft tissues are normal in appearance noting angiographic phase technique. The oropharyngeal airway appears widely patent. The thyroid gland is enlarged and heterogeneous. There are numerous low-attenuation nodules which measure up to 1.3 cm. The salivary glands are normal in appearance. No cervical lymphadenopathy is seen. Skeletal structures: The skeletal structures are osteopenic. The calvarium appears intact. The cervical spine is maintained noting multilevel spondylosis. No lytic or blastic lesion is seen. Orbits: The bony orbits are intact. Orbital contents are normal as visualized. Sinuses and mastoids: There is trace mucosal thickening in the left maxillary antrum. A 1.7 cm retention cyst is seen in the right maxillary antrum. The remaining paranasal sinuses are clear. There is a large left mastoid effusion. The right mastoid air cells are well pneumatized. IMPRESSION: 1. There is no hemorrhage, mass effect, or evidence of acute territorial ischemia by CT criteria. 2. 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 3. Otherwise unremarkable CT angiogram of the brain. 4. Unremarkable CT angiogram of the neck. 5. Left mastoid effusion. 6. Additional findings as above. ACT 112: Negative or not required by law. Electronically signed by: Aureliano Orellana M.D. 07/12/2020 2:16 PM Dictated: 07/12/20 1403 Transcribed: 07/12/20 1415 Patient: LUCIA MARINO Date: 07/12/20 MR#: [id number]: [address] [facility] Acct ID:[id number]: [place] Date: 1940[facility] Zip: [place] [address] Age: 80Location: ED Sex: FRoom/Bed: Att Phy:Diagnosis: lethargic/ams, elmcroft Luz Phy: ElmcroftService Date: 07/12/20 Fam Phy:Interpreting Phy: Aureliano Orellana MD Admit Phy: Ordering Phy: Jarod Dozier, cc: ~ UNENHANCED CT OF THE BRAIN; CT ANGIOGRAM OF THE BRAIN; CT ANGIOGRAM OF THE NECK CLINICAL HISTORY: Strokelike symptoms. COMPARISON STUDY: CT of the brain dated 04/22/2020. TECHNIQUE: Unenhanced axial CT scan of the brain is performed. Subsequently, following the IV administration of 118 of Optiray 320, CT angiogram of the head and neck was performed from the aortic arch to the vertex. Images are reviewed in the axial, sagittal, and coronal planes. 3-D MIPS images are created and assessed. IV contrast was administered without complication. All measurements were calculated based on NASCET criteria. A dose lowering technique was utilized adhering to the principles of ALARA. The unenhanced CT of the brain was performed twice due to motion artifact. CT DOSE: 2595.83 mGy.cm FINDINGS: Brain parenchyma: There is age-related involutional change noting moderate subcortical and periventricular microangiopathic disease. There is no hemorrhage, mass effect, or evidence of acute territorial ischemia by CT criteria. There is no evidence of enhancing mass lesion on the angiogram phase images. The ventricles, sulci, and cisterns are prominent secondary to involutional change. Gusman-white matter differentiation is preserved. No extra- axial fluid collection is seen. Thoracic aorta: There is atherosclerotic calcification of the thoracic aorta. Visualized portions of the thoracic aorta are normal in caliber. The aortic arch demonstrates standard 3-vessel anatomy. Right carotid arterial system: The right common carotid artery is widely patent, as are the right internal and external carotid arteries. Calcified plaque is noted in the carotid bulb. Left carotid arterial system: The left common carotid artery is widely patent, as are the left internal and external carotid arteries. Vertebral arteries: The vertebral arteries are widely patent and codominant. Subclavian arteries: Widely patent bilaterally. Intracranial vasculature: There is atherosclerotic calcification of the cavernous carotid and vertebral arteries. There is origin of the left posterior cerebral artery. The internal carotid arteries are patent at the skull base, as are the anterior and middle cerebral arteries bilaterally. The vertebrobasilar system is widely patent. 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 The posterior cerebral arteries are otherwise patent. The vertebral arteries are codominant. There is no aneurysm or focal vessel cut off seen throughout the intracranial circulation. Jugular veins: Patent bilaterally. Dural sinuses: Patent. Lung apices: A calcified granuloma is seen in the right upper lobe. The imaged upper lobe lung parenchyma is otherwise clear. Soft tissues: The visualized pharyngeal soft tissues are normal in appearance noting angiographic phase technique. The oropharyngeal airway appears widely patent. The thyroid gland is enlarged and heterogeneous. There are numerous low-attenuation nodules which measure up to 1.3 cm. The salivary glands are normal in appearance. No cervical lymphadenopathy is seen. Skeletal structures: The skeletal structures are osteopenic. The calvarium ap pears intact. The cervical spine is maintained noting multilevel spondylosis. No lytic or blastic lesion is seen. Orbits: The bony orbits are intact. Orbital contents are normal as visualized. Sinuses and mastoids: There is trace mucosal thickening in the left maxillary antrum. A 1.7 cm retention cyst is seen in the right maxillary antrum. The remaining paranasal sinuses are clear. There is a large left mastoid effusion. The right mastoid air cells are well pneumatized. IMPRESSION: 1. There is no hemorrhage, mass effect, or evidence of acute territorial ischemia by CT criteria. 2. 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 3. Otherwise unremarkable CT angiogram of the brain. 4. Unremarkable CT angiogram of the neck. 5. Left mastoid effusion. 6. Additional findings as above. ACT 112: Negative or not required by law. Electronically signed by: Aureliano Orellana M.D. 07/12/2020 2:16 PM Dictated: 07/12/20 1403 Transcribed: 07/12/20 1415 Blood Pressure Blood Pressure Findings: Elevated blood pressure Blood Pressure Disposition: further management by hospitalist Discharge Plan Visit Data Chief Complaint: Illness Stated Complaint: lethargic/ams, [place] ED Provider: Jarod Dozier Discharge Problem: Altered mental status, Urinary tract infection, Acute kidney injury, Acute dehydration Patient Disposition: Being Evaluated by Hospitalist Condition: Good Discharge Instructions Interventions: ED Discharge Assessment Last Done: 07/12/20 17:08
[2020-07-12 13:27] LABS: iSTAT Creatinine 1.2 mg/dl (0.6-1.3); iSTAT Hemoglobin 12.6 g/dl (12.0-16.0); iSTAT Ionized Calcium 1.23 mmol/l (1.12-1.32); iSTAT Potassium 4.5 mmol/L (3.3-5.0)
[2020-07-12 13:34] LABS: INR 1.1 (0.9-1.1); Partial Thromboplastin Ratio 1.1; Partial Thromboplastin Time 31.7 Seconds (21.0-31.0); Prothrombin Time 11.5 Seconds (9.0-12.0)
[2020-07-12 13:38] LABS: Alanine Aminotransferase 27 U/L (12-78); Albumin Level 3.2 gm/dl (3.4-5.0); Aspartate Aminotransferase 31 U/L (15-37); BUN Creatinine Ratio 13.6 (10-20); Blood Urea Nitrogen 18 mg/dl (7-18); Carbon Dioxide 29 mmol/L (21-32); Chloride 108 mmol/L (98-107); Creatinine Clr Calc Pharmacy 24.8 ml/min; Est GFR (African American) 43.7; Est GFR (Non-African American) 37.7; Glucose 121 mg/dl (70-99); Magnesium 1.9 mg/dl (1.8-2.4); Potassium 4.5 mmol/L (3.5-5.1); Sodium 142 mmol/L (136-145)
[2020-07-12 13:42] LABS: Appearance Urine Clear (Clear); Bacteria Urine Automated Negative (Negative); Bilirubin Urine Negative (Negative); Blood Urine Negative (Negative); Color Urine Yellow; Epithelial Cell Urine Auto >30 /lpf (0-5); Glucose Urine UA Negative (Negative); Ketones Urine Negative (Negative); Leukocyte Esterase Urine 2+ (Negative); Nitrite Urine Negative (Negative); Protein Urine Negative (Negative); RBC Urine Automated 0-4 /hpf (0-4); Specific Gravity Urine 1.021 (1.000-1.030); Urobilinogen Urine Negative (Negative)
[2020-07-12 13:43] LABS: Albumin Globulin Ratio 0.7 (0.9-2); Alkaline Phosphatase 106 U/L (45-117); Bilirubin,Total 0.5 mg/dl (0.2-1); Globulin 4.3 gm/dl (2.5-4.0); Total Protein 7.5 gm/dl (6.4-8.2); Troponin I < 0.015 ng/ml (0-0.045)
[2020-07-12] MEDS ORDERED: OPTIRAY 320 125ml IV ONE (13:47)
[2020-07-12 14:00] LABS: Uric Acid Crystals Urine Present (None Prsent)
[2020-07-12 14:01] LABS: Mucus Urine Present (None Prsent); Renal Epithelial Cells Urine 0-5 /lpf (0-5)
--- NOTE | 2020-07-12 14:17 | CT Scan Report ---
UNENHANCED CT OF THE BRAIN; CT ANGIOGRAM OF THE BRAIN; CT ANGIOGRAM OF THE NECK CLINICAL HISTORY: Strokelike symptoms. COMPARISON STUDY: CT of the brain dated 04/22/2020. TECHNIQUE: Unenhanced axial CT scan of the brain is performed. Subsequently, following the IV adminis tration of 118 of [address] 320, CT angiogram of the head and neck was performed from the aortic arch t o the vertex. Images are reviewed in the axial, sagittal, and coronal planes. 3-D MIPS images are cre ated and assessed. IV contrast was administered without complication. All measurements were calculate d based on NASCET criteria. A dose lowering technique was utilized adhering to the principles of ALA RA. The unenhanced CT of the brain was performed twice due to motion artifact. CT DOSE: 2595.83 mGy.cm FINDINGS: Brain parenchyma: There is age-related involutional change noting moderate subcortical and periventri cular microangiopathic disease. There is no hemorrhage, mass effect, or evidence of acute territorial ischemia by CT criteria. There is no evidence of enhancing mass lesion on the angiogram phase images . The ventricles, sulci, and cisterns are prominent secondary to involutional change. Gusman-white frank er differentiation is preserved. No extra-axial fluid collection is seen. Thoracic aorta: There is atherosclerotic calcification of the thoracic aorta. Visualized portions of the thoracic aorta are normal in caliber. The aortic arch demonstrates standard 3-vessel anatomy. Right carotid arterial system: The right common carotid artery is widely patent, as are the right int ernal and external carotid arteries. Calcified plaque is noted in the carotid bulb. Left carotid arterial system: The left common carotid artery is widely patent, as are the left internal medicine physician assistant al and external carotid arteries. Vertebral arteries: The vertebral arteries are widely patent and codominant. Subclavian arteries: Widely patent bilaterally. Intracranial vasculature: There is atherosclerotic calcification of the cavernous carotid and vertebr al arteries. There is origin of the left posterior cerebral artery. The internal carotid arteri es are patent at the skull base, as are the anterior and middle cerebral arteries bilaterally. The ve rtebrobasilar system is widely patent. There is moderate stenosis of the proximal right posterior cer ebral artery seen on axial image #100. The posterior cerebral arteries are otherwise patent. The vert ebral arteries are codominant. There is no aneurysm or focal vessel cut off seen throughout the intra cranial circulation. Jugular veins: Patent bilaterally. Dural sinuses: Patent. Lung apices: A calcified granuloma is seen in the right upper lobe. The imaged upper lobe lung parenc hyma is otherwise clear. Soft tissues: The visualized pharyngeal soft tissues are normal in appearance noting angiographic pha se technique. The oropharyngeal airway appears widely patent. The thyroid gland is enlarged and heter ogeneous. There are numerous low-attenuation nodules which measure up to 1.3 cm. The salivary glands are normal in appearance. No cervical lymphadenopathy is seen. Skeletal structures: The skeletal structures are osteopenic. The calvarium appears intact. The cervic al spine is maintained noting multilevel spondylosis. No lytic or blastic lesion is seen. Orbits: The bony orbits are intact. Orbital contents are normal as visualized. Sinuses and mastoids: There is trace mucosal thickening in the left maxillary antrum. A 1.7 cm retent ion cyst is seen in the right maxillary antrum. The remaining paranasal sinuses are clear. There is a large left mastoid effusion. The right mastoid air cells are well pneumatized. IMPRESSION: 1. There is no hemorrhage, mass effect, or evidence of acute territorial ischemia by CT criteria. 2. 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 3. Otherwise unremarkable CT angiogram of the brain. 4. Unremarkable CT angiogram of the neck. 5. Left mastoid effusion. 6. Additional findings as above. ACT 112: Negative or not required by law. Electronically signed by: Aureliano Orellana M.D. 07/12/2020 2:16 PM
[2020-07-12] MEDS ORDERED: cefTRIAXone SODIUM 1,000 MG/50 ML BAG IV STA (15:39)
[2020-07-12] MEDS ORDERED: SODIUM CHLORIDE 0.9% 500 ML IV ONE (15:39)
--- NOTE | 2020-07-12 16:27 | History & Physical Report ---
Date of Service July 12, 2020 Assessment & Plan (1) Acute metabolic encephalopathy: (2) UTI (urinary tract infection): This is an 80-year-old female who resides at [facility] with PMH of hypertension, type 2 diabetes, dementia, history of PE on Eliquis and other medical problems listed below who presents with confusion x 8 days. -History obtained from son at bedside, who last saw patient well on 06/30 -Has completed 4 days of Bactrim for UTI but altered mental status has persisted and she has become more agitated -CT head, CTA head and neck, CXR without acute abnormality. Afebrile, creatinine elevated 1.32, UA abnormal -Continue Rocephin started in ED. Follow urine and blood cultures. Continue gentle fluids -Keep NPO for now with speech consult placed (3) FOREST (acute kidney injury): Creatinine elevated at 1.32 from baseline ~ 0.9 -In setting of Bactrim use, dehydration -Gentle fluids, discontinue Bactrim, hold losartan, monitor BMP (4) Dementia: History of vascular and ? Lewy body dementia, per son -Continue Seroquel, fall precautions, mouth care, repositioning (5) HTN (hypertension): Normotensive. Continue amlodipine. Hold losartan in setting of FOREST (6) Diabetes mellitus, type II: -Hold home agents -SSI while in-patient -BSG AC HS or Q6H while NPO (7) Pulmonary emboli: History of PE on Eliquis DVT Ppx: Eliquis Code status: DNR PCP: [facility] Dispo: Obs med tele. Discharge planning, PT and OT ordered. Patient seen in collaboration with Dr. Nguyen. Please see addendum. History of Present Illness Chief Complaint: Confusion Primary Care Provider: [facility] This is an 80-year-old female who resides at [facility] with PMH of hypertension, type 2 diabetes, dementia, history of PE on Eliquis and other medical problems listed below who presents with confusion x 8 days. History obtained from son at bedside, who last saw patient well on 06/30. At that time, patient was at her cognitive baseline which is pleasantly confused but able to converse and ambulate with assistance. As of 07/04, patient was not able to communicate clearly and required a wheelchair for transportation. Was diagnosed with UTI 4 days ago and started on Bactrim but altered mental status has persisted and she has become more agitated. Son has not been able to visit personal long term due to canceled visitation after known exposure in facility. Patient able to nod yes and no and denies any pain right now. Otherwise ROS is limited due to altered mental status. Allergies Allergy/AdvReac Type Severity Reaction Status Date / Time atorvastatin [From Lipitor] Allergy Unknown Unknown Verified 07/12/20 13:21 metformin [From Glucophage] Allergy Unknown Unknown Verified 07/12/20 13:21 Penicillins Allergy Unknown Unknown Verified 07/12/20 13:21 Home Medications Home Medications Medication Instructions Recorded Confirmed Type amlodipine [Norvasc] 5 mg PO DAILY@0900 11/04/18 07/12/20 History apixaban 2.5 mg PO BID 11/04/18 07/12/20 History atenolol 50 mg PO DAILY@0900 11/04/18 07/12/20 History ergocalciferol (vitamin D2) 50,000 unit PO FR@0911/04/18 07/12/20 History [Vitamin D2] glipizide 5 mg PO DAILY@0900 11/04/18 07/12/20 History losartan [Cozaar] 100 mg PO DAILY@0900 11/04/18 07/12/20 History polyethylene glycol 3350 [Miralax] 17 g PO DAILY PRN 11/04/18 07/12/20 History lorazepam 1 mg PO Q4H PRN 04/22/20 07/12/20 History omeprazole 20 mg PO DAILY@0900 04/22/20 07/12/20 History sulfamethoxazole-trimethoprim 1 tab PO BID17 04/22/20 07/12/20 History [Bactrim DS] quetiapine 200 mg PO DAILY@1700 07/12/20 07/12/20 History 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 Diabetes mellitus, type II Endometriosis HTN (hypertension) Pulmonary emboli Surgical History History of cholecystectomy Family History Other No significant family history Social History Smoking Status: Never smoker Preferred Language: Khmer Feels Safe at Home: Yes Review of Systems Review of Systems: Unobtainable due to cognitive status Physical Exam Physical Exam: General Appearance: WD/WN, vitals as above, NAD, conversing intermittently, agitated but easily redirected Head: normocephalic, atraumatic Eyes: normal inspection, PERRL, conjunctivae normal, anicteric sclerae ENT: external ear and nose normal, + dry oropharynx Neck: normal visual inspection, trachea midline, no thyromegaly Respiratory: normal respiratory effort, lungs clear to auscultation, no wheeze, rales, rhonchi. No accessory muscle use Cardiovascular: regular rate, rhythm, no murmur appreciated, normal peripheral pulses, no BLE edema. Vessels: no JVD Chest: normal inspection of chest Abdomen/GI: normal bowel sounds, soft, nontender, no hepatosplenomegaly Extremities/Musculoskeletal: no cyanosis or clubbing, extremities motor strength 5/5 Neurologic: PERRL, EOMI, accommodation nl, no face palsy, no dysarthria, CN's II-XI intact bilaterally and moves all extremities Psychiatric: Disoriented, intermittently agitated but easily redirected Skin: no rashes, normal color, warm/dry Results & Data Results & Data ([facility]) Vital Signs (Past 12 Hours) Vital Signs Temp Pulse Pulse Resp BP BP Pulse Ox 07/12/20 14:23 71 18 07/12/20 13:35 67 20 98/46 L 91 07/12/20 12:30 36.6 C 67 16 120/53 L 92 Laboratory Results Short CBC 07/12/20 Range/Units 13:00 WBC 7.24 (4.8-10.8) K/uL Hgb 12.2 (12.0-16.0) g/dL Hct 35.9 L (37-47) % Plt Count 218 (130-400) K/uL BMP 07/12/20 13:00 Sodium 142 Potassium 4.5 Chloride 108 H Carbon Dioxide 29 BUN 18 Creatinine 1.32 H Glucose 121 H Calcium 9.0 Cardiac Enzymes 07/12/20 Range/Units 13:00 Troponin I < 0.015 (0-0.045) ng/ml Liver Function 07/12/20 Range/Units 13:00 Total Bilirubin 0.5 (0.2-1) mg/dl AST 31 (15-37) U/L ALT 27 (12-78) U/L Alkaline Phosphatase 106 (45-117) U/L Albumin 3.2 L (3.4-5.0) gm/dl Urine 07/12/20 Range/Units 13:25 Urine Color Yellow Urine Appearance Clear (Clear) Urine pH 5.0 (4.5-7.5) Ur Specific [place] 1.021 (1.000-1.030) Urine Protein Negative (Negative) Urine Glucose (UA) Negative (Negative) Diagnostic Findings Head CT: IMPRESSION: 1. There is no hemorrhage, mass effect, or evidence of acute territorial ischemia by CT criteria. 2. 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 3. Otherwise unremarkable CT angiogram of the brain. 4. Unremarkable CT angiogram of the neck. 5. Left mastoid effusion. 6. Additional findings as above. Head CTA: IMPRESSION: 1. There is no hemorrhage, mass effect, or evidence of acute territorial ischemia by CT criteria. 2. 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 3. Otherwise unremarkable CT angiogram of the brain. 4. Unremarkable CT angiogram of the neck. 5. Left mastoid effusion. 6. Additional findings as above. Neck CTA: IMPRESSION: 1. There is no hemorrhage, mass effect, or evidence of acute territorial ischemia by CT criteria. 2. 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 3. Otherwise unremarkable CT angiogram of the brain. 4. Unremarkable CT angiogram of the neck. 5. Left mastoid effusion. 6. Additional findings as above. CXR: IMPRESSION: No active disease in the chest. Code Status & VTE Plan VTE Prophylaxis Plan VTE Prophylaxis will be ordered: Yes Supervising Physician Co-Signing Physician Notes I, Dr. Hermes Nguyen, have seen and examined the patient Aurea Monroe with physician residential living assistant and would like to comment that on exam General: does not appear to be in acute distress, has dementia, speaking, history as per son at bedside HEENT: extraoccular movements, dry oral mucosa Lungs: on room air, no wheezing Heart: regular rate Abdomen: soft, nontender, positive bowel sounds Extremities/Neuro: moves all extremities Assessment and Plan -[facility] who as per son at bedside has not been her usual state of health in 06/30/2020 when patient at that time was ambulating. On 07/04/2020, her son reports that patient had functional decline and needed to be pushed by wheelchair. Subsequently, the [facility] facility tested their residents for COVID-19. To his knowledge, patients son denies any recent positive COVID-19 test for the patient. -patient does not appear to be in acute distress as she became more interactive after IV fluids given by ED physician, her dry oral mucosa, and elevations in creatinine suggestive that symptoms are primarily from dehydration. Urinary tract infection is a possibility -despite no obvious respiratory symptoms, patient will still be screened for COVID-19 because of recent long-term COVID outbreaks in the local area. -patient has history of type 2 diabetes mellitus. Patient will get further IV fluids as D5 normal saline until dysphagia screening and formal speech and swallow evaluation. Will need PT/OT evaluation and case management evaluation. Give sliding scale insulin as needed -patients son affirms Code Status to be DNR/DNI -agree with other assessments and plans as documented by physician residential living assistant -My colleague Dr. Romano will be following the patient as hospitalist starting on 07/13/2020
--- NOTE | 2020-07-12 17:33 | Electrocardiogram Report ---
Test Reason : Blood Pressure : / mmHG Vent. Rate : 108 BPM Atrial Rate : 394 BPM P-R Int : 000 ms QRS Dur : 038 ms QT Int : 386 ms P-R-T Axes : 000 -39 032 degrees QTc Int : 517 ms Poor data quality, interpretation may be adversely affected Not readily interpretable Probably sinus rhythm Confirmed by Naman Schwartz ([id number]) on 07/12/2020 5:32:38 PM [facility] Confirmed By:Elbert Schwartz
[2020-07-12] MEDS ORDERED: POLYETHYLENE (MIRALAX) 17 GM PACK PO PRN (17:45)
[2020-07-12] MEDS ORDERED: ONDANSETRON INJ 2 MG/ML 2 ML VIAL IV PRN (17:45)
[2020-07-12] MEDS ORDERED: ACETAMINOPHEN 325 MG TAB PO PRN (17:45)
[2020-07-12] MEDS ORDERED: DEXTROSE 50% 50 ML SYRINGE IV PRN (18:15)
[2020-07-12] MEDS ORDERED: CARBOHYDRATES FOR HYPOGLYCEMIA PO PRN (18:15)
[2020-07-12] MEDS ORDERED: GLUCOSE 10 TABS/TUBE PO PRN (18:15)
[2020-07-12] MEDS ORDERED: GLUCOSE 40% GEL 15 GM TUBE PO PRN (18:15)
[2020-07-12] MEDS ORDERED: GLUCAGON FOR INJ 1 MG VIAL SQ PRN (18:15)
[2020-07-12] MEDS ORDERED: D5W AND 1/2NSS 1,000 ML IV SCH (18:15)
[2020-07-12] MEDS ORDERED: LORazepam 1 MG TAB PO PRN (18:19)
[2020-07-12] MEDS: APIXABAN 2.5 MG TAB PO SCH ×2 (20:32→20:53)
[2020-07-12] MEDS: QUETIAPINE FUMARATE 200 MG TABCR PO SCH ×2 (20:32→20:54)
[2020-07-12] MEDS: INSULIN ASPART 100 UNITS/ML 3 ML PEN SC SCH (20:55)
[2020-07-12] MEDS ORDERED: HEPARIN SOD 5,000 UNIT/0.5 ML VIAL SQ SCH (21:00)
[2020-07-13 07:18] LABS: Hematocrit (blood only) 34.6 % (37-47); Hemoglobin 11.4 g/dL (12.0-16.0); Mean Corpuscular Hemoglobin 27.3 pg (25-34); Mean Corpuscular Hgb Conc 32.9 g/dL (32-36); Mean Corpuscular Volume 82.8 fL (80-100); Mean Platelet Volume 10.7 fL (7.4-10.4); Platelet Count 226 K/uL (130-400); RDW Coefficient of Variation 13.6 % (11.5-14.5); Red Blood Count 4.18 M/uL (4.2-5.4)
[2020-07-13 07:43] LABS: Estimated Average Glucose 103 mg/dl; Hemoglobin A1C 5.2 % (4.5-5.6)
[2020-07-13 07:54] LABS: Albumin Level 2.9 gm/dl (3.4-5.0); BUN Creatinine Ratio 11.7 (10-20); Calcium 8.6 mg/dl (8.5-10.1); Creatinine Clr Calc Pharmacy 28.8 ml/min; Est GFR (African American) 52.2; Est GFR (Non-African American) 45.1
[2020-07-13 07:57] LABS: Albumin Globulin Ratio 0.8 (0.9-2); Bilirubin,Total 0.6 mg/dl (0.2-1); Globulin 3.6 gm/dl (2.5-4.0); Total Protein 6.5 gm/dl (6.4-8.2)
[2020-07-13] MEDS: APIXABAN 2.5 MG TAB PO SCH ×2 (09:25→20:43)
[2020-07-13] MEDS: cefTRIAXone SODIUM 1,000 MG in DEXTROSE 5% 50 ML IV SCH (09:25)
[2020-07-13] MEDS: AMLODIPINE BESYLATE 5 MG TAB PO SCH (09:25)
[2020-07-13] MEDS: PANTOprazole 40 MG TAB PO SCH (09:25)
[2020-07-13] MEDS: ATENOLOL 50 MG TABLET PO SCH (09:25)
[2020-07-13] MEDS: INSULIN ASPART 100 UNITS/ML 3 ML PEN SC SCH ×4 (09:30→21:30)
[2020-07-13] MEDS: QUETIAPINE FUMARATE 200 MG TABCR PO SCH (16:51)
--- NOTE | 2020-07-13 20:13 | Hospitalist Progress Note ---
Date of Service July 13, 2020 Assessment & Plan (1) Acute metabolic encephalopathy: (2) UTI (urinary tract infection): This is an 80-year-old female who resides at [facility] with PMH of hypertension, type 2 diabetes, dementia, history of PE on Eliquis and other medical problems listed below who presents with confusion x 8 days. Received 4 days of bactrim for UTI CT head/CTA head and neck showed no acute intracranial abnormality. Urine cx and blood cx pending Continue Rocephin IV for now Clinically improves fall precaution (3) FOREST (acute kidney injury): Creatinine elevated at 1.32 on admission from baseline ~ 0.9 Possible related to dehydration in the setting of bactrim Received IVF Creatinine improved to 1.1 today Bactrim was d/c Continue to hold Losartan (4) Dementia: Continue Seroquel Stable (5) HTN (hypertension): Continue amlodipine. Continue to hold losartan in setting of FOREST BP stable (6) Diabetes mellitus, type II: Hgb a1c 5.2 Continue to hold glipizide ( Will consider to decrease it to 2.5mg or possible d/c it on discharge due to risk of hypoglycemia ) Continue insulin sliding scale while in-patient Continue monitor BS (7) Pulmonary emboli: History of PE on Eliquis Saturated well on RA DVT Ppx: Eliquis Code status: DNR Dispo: Possible discharge to [facility] tomorrow Admission and Anticipated Discharge Date Admission Date: July 12, 2020 Subjective Pt was seen and examined Lying in bed with no distress watching tv Pt said is confused and seems to be at her baseline Denies any chest pain, palpitation, dizziness and SOB Physical Exam 2 Physical Exam: General- No acute distress Head- atraumatic Eyes- PERRL, EOMI, ENT- oropharynx clear Neck- supple, no JVD Lungs- clear to auscultation Heart- regular rhythm; no murmur Abdomen- normal bowel sounds, soft, nontender Extremities- no calf tenderness Neuro- alert, oriented x 3; PERRL, EOMI; no facial palsy; no dysarthria Skin- warm & dry Results & Data Results & Data ([facility]) Vital Signs (Past 12 Hours) Vital Signs Temp Pulse Pulse Resp BP Pulse Ox 07/13/20 16:08 37.0 C 70 16 130/74 96 07/13/20 15:38 60 07/13/20 11:19 37.2 C 62 16 106/62 94
[2020-07-14] MEDS: AMLODIPINE BESYLATE 5 MG TAB PO SCH ×2 (08:52→11:01)
[2020-07-14] MEDS: ATENOLOL 50 MG TABLET PO SCH ×2 (08:52→11:01)
[2020-07-14] MEDS: cefTRIAXone SODIUM 1,000 MG in DEXTROSE 5% 50 ML IV SCH (08:52)
[2020-07-14] MEDS: PANTOprazole 40 MG TAB PO SCH ×2 (08:52→11:01)
[2020-07-14] MEDS: INSULIN ASPART 100 UNITS/ML 3 ML PEN SC SCH ×2 (08:59→12:36)
[2020-07-14] MEDS: APIXABAN 2.5 MG TAB PO SCH ×2 (09:00→11:01)
--- NOTE | 2020-07-14 20:53 | Discharge Summary ---
Date of Service July 14, 2020 Admission HPI Per Admitting Provider This is an 80-year-old female who resides at [facility] with PMH of hypertension, type 2 diabetes, dementia, history of PE on Eliquis and other medical problems listed below who presents with confusion x 8 days. History obtained from son at bedside, who last saw patient well on 06/30. At that time, patient was at her cognitive baseline which is pleasantly confused but able to converse and ambulate with assistance. As of 07/04, patient was not able to communicate clearly and required a wheelchair for transportation. Was diagnosed with UTI 4 days ago and started on Bactrim but altered mental status has persisted and she has become more agitated. Son has not been able to visit personal alf due to canceled visitation after known exposure in facility. Patient able to nod yes and no and denies any pain right now. Otherwise ROS is limited due to altered mental status. Admission Exam Per Admitting Provider General Appearance: WD/WN, vitals as above, NAD, conversing intermittently, agitated but easily redirected Head: normocephalic, atraumatic Eyes: normal inspection, PERRL, conjunctivae normal, anicteric sclerae ENT: external ear and nose normal, + dry oropharynx Neck: normal visual inspection, trachea midline, no thyromegaly Respiratory: normal respiratory effort, lungs clear to auscultation, no wheeze, rales, rhonchi. No accessory muscle use Cardiovascular: regular rate, rhythm, no murmur appreciated, normal peripheral pulses, no BLE edema. Vessels: no JVD Chest: normal inspection of chest Abdomen/GI: normal bowel sounds, soft, nontender, no hepatosplenomegaly Extremities/Musculoskeletal: no cyanosis or clubbing, extremities motor strength 5/5 Neurologic: PERRL, EOMI, accommodation nl, no face palsy, no dysarthria, CN's II-XI intact bilaterally and moves all extremities Psychiatric: Disoriented, intermittently agitated but easily redirected Skin: no rashes, normal color, warm/dry Principal Diagnosis Acute metabolic encephalopathy: UTI (urinary tract infection): FOREST (acute kidney injury): Dementia: HTN (hypertension): Diabetes mellitus, type II: Discharge Exam General- No acute distress Head- atraumatic Eyes- PERRL, EOMI, ENT- oropharynx clear Neck- supple, no JVD Lungs- clear to auscultation Heart- regular rhythm; no murmur Abdomen- normal bowel sounds, soft, nontender Extremities- no calf tenderness Neuro- alert, oriented x 3; PERRL, EOMI; no facial palsy; no dysarthria Skin- warm & dry Discharge Data Allergies Allergy/AdvReac Type Severity Reaction Status Date / Time atorvastatin [From Lipitor] Allergy Unknown Unknown Verified 07/12/20 13:21 metformin [From Glucophage] Allergy Unknown Unknown Verified 07/12/20 13:21 Penicillins Allergy Unknown Unknown Verified 07/12/20 13:21 Consultations 07/12/20 16:03 ED Decision to Admit Stat 07/12/20 17:45 Consult Case Management - Discharge Planning Routine Ordered Studies 07/12/20 12:34 CT angio head w con Stat CT angio neck with con Stat CT head/brain wo con Stat XR chest 1V portable CLINICAL HISTORY: Weakness COMPARISON STUDY: 11/04/2018 FINDINGS: There is stable borderline elevation right hemidiaphragm. There is no failure. There is no focal pulmonary consolidation. There are no pleural effusions. There is a calcified right upper lung zone granuloma.[ IMPRESSION: No active disease in the chest. ACT 112: Negative or not required by law. Electronically signed by: Kanu Lennon M.D. 07/12/2020 1:02 PM Dictated: 07/12/20 1253 Transcribed: 07/12/[address] OF THE BRAIN; CT ANGIOGRAM OF THE BRAIN; CT ANGIOGRAM OF THE NECK CLINICAL HISTORY: Strokelike symptoms. COMPARISON STUDY: CT of the brain dated 04/22/2020. TECHNIQUE: Unenhanced axial CT scan of the brain is performed. Subsequently, following the IV administration of 118 of Optiray 320, CT angiogram of the head and neck was performed from the aortic arch to the vertex. Images are reviewed in the axial, sagittal, and coronal planes. 3-D MIPS images are created and assessed. IV contrast was administered without complication. All measurements were calculated based on NASCET criteria. A dose lowering technique was utilized adhering to the principles of ALARA. The unenhanced CT of the brain was performed twice due to motion artifact. CT DOSE: 2595.83 mGy.cm FINDINGS: Brain parenchyma: There is age-related involutional change noting moderate subcortical and periventricular microangiopathic disease. There is no hemorrhage, mass effect, or evidence of acute territorial ischemia by CT criteria. There is no evidence of enhancing mass lesion on the angiogram phase images. The ventricles, sulci, and cisterns are prominent secondary to involutional change. Gusman-white matter differentiation is preserved. No extra- axial fluid collection is seen. Thoracic aorta: There is atherosclerotic calcification of the thoracic aorta. Visualized portions of the thoracic aorta are normal in caliber. The aortic arch demonstrates standard 3-vessel anatomy. Right carotid arterial system: The right common carotid artery is widely patent, as are the right internal and external carotid arteries. Calcified plaque is noted in the carotid bulb. Left carotid arterial system: The left common carotid artery is widely patent, as are the left internal and external carotid arteries. Vertebral arteries: The vertebral arteries are widely patent and codominant. Subclavian arteries: Widely patent bilaterally. Intracranial vasculature: There is atherosclerotic calcification of the cavernous carotid and vertebral arteries. There is origin of the left posterior cerebral artery. The internal carotid arteries are patent at the skull base, as are the anterior and middle cerebral arteries bilaterally. The vertebrobasilar system is widely patent. 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 The posterior cerebral arteries are otherwise patent. The vertebral arteries are codominant. There is no aneurysm or focal vessel cut off seen throughout the intracranial circulation. Jugular veins: Patent bilaterally. Dural sinuses: Patent. Lung apices: A calcified granuloma is seen in the right upper lobe. The imaged upper lobe lung parenchyma is otherwise clear. Soft tissues: The visualized pharyngeal soft tissues are normal in appearance noting angiographic phase technique. The oropharyngeal airway appears widely patent. The thyroid gland is enlarged and heterogeneous. There are numerous low- attenuation nodules which measure up to 1.3 cm. The salivary glands are normal in appearance. No cervical lymphadenopathy is seen. Skeletal structures: The skeletal structures are osteopenic. The calvarium appears intact. The cervical spine is maintained noting multilevel spondylosis. No lytic or blastic lesion is seen. Orbits: The bony orbits are intact. Orbital contents are normal as visualized. Sinuses and mastoids: There is trace mucosal thickening in the left maxillary antrum. A 1.7 cm retention cyst is seen in the right maxillary antrum. The rem aining paranasal sinuses are clear. There is a large left mastoid effusion. The right mastoid air cells are well pneumatized. IMPRESSION: 1. There is no hemorrhage, mass effect, or evidence of acute territorial ischemia by CT criteria. 2. 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 3. Otherwise unremarkable CT angiogram of the brain. 4. Unremarkable CT angiogram of the neck. 5. Left mastoid effusion. 6. Additional findings as above. ACT 112: Negative or not required by law. Electronically signed by: Aureliano Orellana M.D. 07/12/2020 2:16 PM Dictated: 07/12/20 1403 Transcribed: 07/12/[address] OF THE BRAIN; CT ANGIOGRAM OF THE BRAIN; CT ANGIOGRAM OF THE NECK CLINICAL HISTORY: Strokelike symptoms. COMPARISON STUDY: CT of the brain dated 04/22/2020. TECHNIQUE: Unenhanced axial CT scan of the brain is performed. Subsequently, following the IV administration of 118 of Optiray 320, CT angiogram of the head and neck was performed from the aortic arch to the vertex. Images are reviewed in the axial, sagittal, and coronal planes. 3-D MIPS images are created and assessed. IV contrast was administered without complication. All measurements were calculated based on NASCET criteria. A dose lowering technique was utilized adhering to the principles of ALARA. The unenhanced CT of the brain was performed twice due to motion artifact. CT DOSE: 2595.83 mGy.cm FINDINGS: Brain parenchyma: There is age-related involutional change noting moderate subcortical and periventricular microangiopathic disease. There is no hemorrhage, mass effect, or evidence of acute territorial ischemia by CT criteria. There is no evidence of enhancing mass lesion on the angiogram phase images. The ventricles, sulci, and cisterns are prominent secondary to involutional change. Gusman-white matter differentiation is preserved. No extra- axial fluid collection is seen. Thoracic aorta: There is atherosclerotic calcification of the thoracic aorta. Visualized portions of the thoracic aorta are normal in caliber. The aortic arch demonstrates standard 3-vessel anatomy. Right carotid arterial system: The right common carotid artery is widely patent, as are the right internal and external carotid arteries. Calcified plaque is noted in the carotid bulb. Left carotid arterial system: The left common carotid artery is widely patent, as are the left internal and external carotid arteries. Vertebral arteries: The vertebral arteries are widely patent and codominant. Subclavian arteries: Widely patent bilaterally. Intracranial vasculature: There is atherosclerotic calcification of the cavernous carotid and vertebral arteries. There is origin of the left posterior cerebral artery. The internal carotid arteries are patent at the skull base, as are the anterior and middle cerebral arteries bilaterally. The vertebrobasilar system is widely patent. 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 The posterior cerebral arteries are otherwise patent. The vertebral arteries are codominant. There is no aneurysm or focal vessel cut off seen throughout the intracranial circulation. Jugular veins: Patent bilaterally. Dural sinuses: Patent. Lung apices: A calcified granuloma is seen in the right upper lobe. The imaged upper lobe lung parenchyma is otherwise clear. Soft tissues: The visualized pharyngeal soft tissues are normal in appearance noting angiographic phase technique. The oropharyngeal airway appears widely patent. The thyroid gland is enlarged and heterogeneous. There are numerous low- attenuation nodules which measure up to 1.3 cm. The salivary glands are normal in appearance. No cervical lymphadenopathy is seen. Skeletal structures: The skeletal structures are osteopenic. The calvarium appears intact. The cervical spine is maintained noting multilevel spondylosis. No lytic or blastic lesion is seen. Orbits: The bony orbits are intact. Orbital contents are normal as visualized. Sinuses and mastoids: There is trace mucosal thickening in the left maxillary antrum. A 1.7 cm retention cyst is seen in the right maxillary antrum. The remaining paranasal sinuses are clear. There is a large left mastoid effusion. The right mastoid air cells are well pneumatized. IMPRESSION: 1. There is no hemorrhage, mass effect, or evidence of acute territorial isch emia by CT criteria. 2. 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 3. Otherwise unremarkable CT angiogram of the brain. 4. Unremarkable CT angiogram of the neck. 5. Left mastoid effusion. 6. Additional findings as above. ACT 112: Negative or not required by law. Electronically signed by: Aureliano Orellana M.D. 07/12/2020 2:16 PM Dictated: 07/12/20 1403 Transcribed: 07/12/[address] OF THE BRAIN; CT ANGIOGRAM OF THE BRAIN; CT ANGIOGRAM OF THE NECK CLINICAL HISTORY: Strokelike symptoms. COMPARISON STUDY: CT of the brain dated 04/22/2020. TECHNIQUE: Unenhanced axial CT scan of the brain is performed. Subsequently, following the IV administration of 118 of Optiray 320, CT angiogram of the head and neck was performed from the aortic arch to the vertex. Images are reviewed in the axial, sagittal, and coronal planes. 3-D MIPS images are created and assessed. IV contrast was administered without complication. All measurements were calculated based on NASCET criteria. A dose lowering technique was utilized adhering to the principles of ALARA. The unenhanced CT of the brain was performed twice due to motion artifact. CT DOSE: 2595.83 mGy.cm FINDINGS: Brain parenchyma: There is age-related involutional change noting moderate subcortical and periventricular microangiopathic disease. There is no hemorrhage, mass effect, or evidence of acute territorial ischemia by CT criteria. There is no evidence of enhancing mass lesion on the angiogram phase images. The ventricles, sulci, and cisterns are prominent secondary to invo lutional change. Gusman-white matter differentiation is preserved. No extra-axial fluid collection is seen. Thoracic aorta: There is atherosclerotic calcification of the thoracic aorta. Visualized portions of the thoracic aorta are normal in caliber. The aortic arch demonstrates standard 3-vessel anatomy. Right carotid arterial system: The right common carotid artery is widely patent, as are the right internal and external carotid arteries. Calcified plaque is noted in the carotid bulb. Left carotid arterial system: The left common carotid artery is widely patent, as are the left internal and external carotid arteries. Vertebral arteries: The vertebral arteries are widely patent and codominant. Subclavian arteries: Widely patent bilaterally. Intracranial vasculature: There is atherosclerotic calcification of the cavernous carotid and vertebral arteries. There is origin of the left posterior cerebral artery. The internal carotid arteries are patent at the skull base, as are the anterior and middle cerebral arteries bilaterally. The vertebrobasilar system is widely patent. 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 The posterior cerebral arteries are otherwise patent. The vertebral arteries are codominant. There is no aneurysm or focal vessel cut off seen throughout the intracranial circulation. Jugular veins: Patent bilaterally. Dural sinuses: Patent. Lung apices: A calcified granuloma is seen in the right upper lobe. The imaged upper lobe lung parenchyma is otherwise clear. Soft tissues: The visualized pharyngeal soft tissues are normal in appearance noting angiographic phase technique. The oropharyngeal airway appears widely patent. The thyroid gland is enlarged and heterogeneous. There are numerous low- attenuation nodules which measure up to 1.3 cm. The salivary glands are normal in appearance. No cervical lymphadenopathy is seen. Skeletal structures: The skeletal structures are osteopenic. The calvarium appears intact. The cervical spine is maintained noting multilevel spondylosis. No lytic or blastic lesion is seen. Orbits: The bony orbits are intact. Orbital contents are normal as visualized. Sinuses and mastoids: There is trace mucosal thickening in the left maxillary antrum. A 1.7 cm retention cyst is seen in the right maxillary antrum. The remaining paranasal sinuses are clear. There is a large left mastoid effusion. The right mastoid air cells are well pneumatized. IMPRESSION: 1. There is no hemorrhage, mass effect, or evidence of acute territorial ischemia by CT criteria. 2. 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 3. Otherwise unremarkable CT angiogram of the brain. 4. Unremarkable CT angiogram of the neck. 5. Left mastoid effusion. 6. Additional findings as above. ACT 112: Negative or not required by law. Electronically signed by: Aureliano Orellana M.D. 07/12/2020 2:16 PM Dictated: 07/12/20 1403 Transcribed: 07/12/20 1415 Hospital Course (1) Acute metabolic encephalopathy: (2) UTI (urinary tract infection): This is an 80-year-old female who resides at [facility] with PMH of hypertension, type 2 diabetes, dementia, history of PE on Eliquis and other medical problems listed below who presents with confusion x 8 days. Received 4 days of bactrim for UTI CT head/CTA head and neck showed no acute intracranial abnormality. Urine cx and blood cx pending Continue Rocephin IV for now Clinically improves fall precaution (3) FOREST (acute kidney injury): Creatinine elevated at 1.32 on admission from baseline ~ 0.9 Possible related to dehydration in the setting of bactrim Received IVF Creatinine improved to 1.1 today Bactrim was d/c Continue to hold Losartan (4) Dementia: Continue Seroquel Stable (5) HTN (hypertension): Continue amlodipine. Continue to hold losartan in setting of FOREST BP stable (6) Diabetes mellitus, type II: Hgb a1c 5.2 Continue to hold glipizide ( Will consider to decrease it to 2.5mg or possible d/c it on discharge due to risk of hypoglycemia ) Continue insulin sliding scale while in-patient Continue monitor BS (7) Pulmonary emboli: History of PE on Eliquis Saturated well on RA DVT Ppx: Eliquis Code status: DNR Dispo: Possible discharge to [facility] tomorrow Total Time Total Time Spent Total Time Spent (In Minutes): 35 minutes Total Time Includes: Examination of the Patient, Discharge Planning, Medication Reconciliation, Communication With Other Providers and Other Discharge Plan Discharge Items Patient Disposition: Personal Correction Reason For Visit: METABOLIC ENCEPH, UTI Discharge Diagnosis: Acute metabolic encephalopathy: UTI (urinary tract infection): FOREST (acute kidney injury): Dementia: HTN (hypertension): Diabetes mellitus, type II: Condition on Discharge: Good Activity: Resume your previous activity Non-emergency contact: Primary Care Provider Call non-emergency contact if: you have any medication questions Follow-up/Referrals: [facility], [Primary Care Provider] - Diet: Carb Consistent or DM2 Addtl Attending Provider Instructions: Follow up with your primary care provider in 1 week Fall precaution Check Hba1c in 3 months Pending Studies at Discharge: No Stand-Alone Forms: [employer], Smoking Cessation Skilled Items Patient informed of condition?: Yes DNR: Yes Discharge Level of Care: Other Communicable Disease: No Discharge Prognosis: Stable Lines: None Urinary Catheter: No Medications and DC Order Prescriptions: Continued lorazepam 0.5 mg Tablet 1 mg PO Q4H PRN (Reason: Anxiety) RF: 0 omeprazole 20 mg Capsule,Delayed Release(Dr/Ec) 20 mg PO DAILY@0900 RF: 0 amlodipine [Norvasc] 5 mg Tablet 5 mg PO DAILY@0900 RF: 0 ergocalciferol (vitamin D2) [Vitamin D2] 50,000 unit Capsule 50,000 unit PO FR@0900 RF: 0 losartan [Cozaar] 100 mg Tablet 100 mg PO DAILY@0900 RF: 0 atenolol 50 mg Tablet 50 mg PO DAILY@0900 RF: 0 apixaban 2.5 mg Tablet 2.5 mg PO BID RF: 0 polyethylene glycol 3350 [Miralax] 17 gram Powder In Packet 17 g PO DAILY PRN (Reason: Constipation) RF: 0 quetiapine 200 mg tablet extended release 24 hr 200 mg PO DAILY@1700 RF: 0 Discontinued sulfamethoxazole-trimethoprim [Bactrim DS] 800-160 mg Tablet 1 tab PO BID17 RF: 0 glipizide 5 mg Tablet 5 mg PO DAILY@0900 RF: 0 Discharge Orders: Discharge Order (Routine); Ordered 07/14/20 Ordered By: Amol Lovett Admission Data Admit Date/Time: 07/12/20 16:24 Attending Provider: Amol Lovett Admit Provider: Hermes Nguyen Primary Care Provider: Charlene Other Providers: Hermes Nguyen Other Interventions: Discharge Summary Assessment (RN) Last Done: 07/14/20 15:59
[2020-07-15] MEDS ORDERED: ERGOCALCIFEROL 50,000 UNITS CAP PO SCH (09:00)
== END 2020-07-14 16:29 | disposition home or self-care (01) ==
LOC: 2W 12:24 → ED 12:24 → SUATTDRO 16:24 → 2W 17:08